=== PATIENT | female | born 1940 | race Caucasian/White ===

== ENCOUNTER → 2017-09-13 09:08 | Outpatient (CLI) | payer MEDICARE, SELFPAY ==
[2017-09-13 14:51] LABS: Hemoglobin A1C 9.9 % (4.5-6.2)
== END ==
PROVIDERS: PCP Family Medicine; Visit Provider Family Medicine
DX: E11.9 Type 2 diabetes mellitus without complications (principal)
CPT/HCPCS: 36415; 83036

== ENCOUNTER → 2017-10-17 09:07 | Outpatient (BNVA) | payer MEDICARE, SELFPAY | PROVIDERS: PCP Family Medicine; Visit Provider Student in an Organized Health Care Education/Training Program | DX: M65.342 Trigger finger, left ring finger (principal) | CPT/HCPCS: 99213 ==

== ENCOUNTER → 2017-10-23 08:00 | Outpatient (BNVA) | payer MEDICARE, SELFPAY | PROVIDERS: PCP Family Medicine; Referring Provider Family Medicine; Visit Provider Student in an Organized Health Care Education/Training Program | DX: R69 Illness, unspecified (principal) ==

== ENCOUNTER 2017-10-23 09:33 | Day surgery (SDC) | payer MEDICARE, SELFPAY ==
[2017-10-23 09:44] VITALS: BP 139/83; PULSE 80; RESP 18; TEMP 36.4; O2SAT 92
--- NOTE | 2017-10-23 10:55 | W.PM.DSUDISC ---
Discharge Plan Disposition Patient Disposition: HOME Condition: Good Discharge Details Reason For Visit: TRIGGER FINGER (L) Attending Provider: Peterson Tarango Primary Care Provider: Mario Poole Home Meds and New Rx's Prescriptions: No Action acetaminophen 325 MG tablet 325 mg PO PRN RF: 0 aspirin [Aspirin Low-Strength] 81 MG tablet,chewable 81 mg PO DAILY RF: 0 [id number]-[id number]-[id number]-brrfyph-ast [MegaRed [place]-3 Krill Oil] 1 EACH capsule 1 ea PO DAILY RF: 0 metformin 500 MG tablet 500 mg PO BID Qty: 180 RF: 3 clopidogrel [Plavix] 75 MG tablet 75 mg PO DAILY Qty: 90 RF: 4 levothyroxine 88 MCG tablet 88 mcg PO DAILY Qty: 90 RF: 3 Discharge Instructions Stand Alone Forms: Emelina Hewitt Finger Release Activity:: Elevate Remove Dressings/Wound Care:: 48 hours Shower/Bathe:: 48 hours Discharge Orders Discharge Orders: Discharge Order (Routine); Ordered 10/23/17 Ordered By: Peterson Tarango DS: Diagnosis Discharge Diagnosis (1) Trigger finger, left ring finger: Status: Acute
--- NOTE | 2017-10-23 11:50 | W.PM.OP ---
Date of service: 10/23/17 Time of Service: 10:00 Operative Note DATE OF PROCEDURE: 10/23/17 PRE-OP DIAGNOSIS: Trigger Finger -left ring finger POST-OP DIAGNOSIS: same PROCEDURE: Trigger Finger Release -left ring finger SURGEON: Peterson Tarango ANESTHESIA: local PATHOLOGY: none sent COMPLICATIONS: None Patient was transported to: same day Patient's condition: stable Indications: I have seen Margi in clinic for symptoms of a trigger finger. The catching, clicking, locking, and pain limited function. The diagnosis of trigger finger was evident. The symptoms had not responded to conservative measures. I discussed trigger finger release with the patient. I reviewed the risks of the procedure to include, but not limited to, bleeding, infection, pain, stiffness, incomplete release, damage to nerves or vessels, continued catching, recurrence. Despite these risks, the patient elected to proceed. Findings: There was a tightened A1 kenroy which was released. The flexor tendons were inspected and the patient was able to move the finger without any catching, clicking, or locking. Procedure Description: Margi was greeted in the preoperative holding area where the correct side was identified and marked. The consent was reviewed with the patient and signed. All questions were answered. Margi was taken back to the operating room. The patient was placed into the supine position on the operating room table with the left arm on an arm board. All bony prominences were well padded. No prophylactic antibiotics were administered since this was a clean, elective hand surgical case. The left arm was then prepped with Chloraprep and draped in a standard fashion with stockinette and extremity drape. A timeout to confirm correct identity, side and site, procedure, allergies, anesthesia, and medical concerns was performed. The surgical site was marked as a longitudinal incision directly over the A1 kenroy of the involved digit. This was confirmed with palpation during finger flexion. This area, overlying the metacarpal head, was then anesthetized with 1% Lidocaine. The patient tolerated this well and once the anesthetic had setup, the procedure began. A longitudinal incision was made through skin only, approximately 1cm. The deep tissues were dissected bluntly. Once the A1 kenroy and flexor tendons were identified the soft tissue including neurovascular structures were retracted medially and laterally. There were no crossing structures over the A1 kenroy. The proximal edge of the kenroy was identified and the kenroy was incised with tenotomy scissors. There was a release of the tendons once this was fully released. The tendons were then removed from the wound and inspected. Excess synovium was resected. The tendons were then returned and the patient was asked to move the finger into deep flexion and back to extension. There was no recreation of the pre-operative symptoms. The hand was then once more inspected for any A0 kenroy or area of possible constriction. The wound was then irrigated and the skin was closed with a 4-0 Nylon. This was dressed with gauze and a Conform dressing. The patient tolerated the procedure well and was returned to the Same Day Surgery area in a stable condition suffering no known complication.
--- NOTE | 2017-10-24 07:51 | ROE_ITS ---
Date of service: 10/23/17 Time of Service: 10:00 Operative Note DATE OF PROCEDURE: 10/23/17 PRE-OP DIAGNOSIS: Trigger Finger -left ring finger POST-OP DIAGNOSIS: same PROCEDURE: Trigger Finger Release -left ring finger SURGEON: Peterson Tarango ANESTHESIA: local PATHOLOGY: none sent COMPLICATIONS: None Patient was transported to: same day Patient's condition: stable Indications: I have seen Margi in clinic for symptoms of a trigger finger. The catching, clicking, locking, and pain limited function. The diagnosis of trigger finger was evident. The symptoms had not responded to conservative measures. I discussed trigger finger release with the patient. I reviewed the risks of the procedure to include, but not limited to, bleeding, infection, pain , stiffness, incomplete release, damage to nerves or vessels, continued catching , recurrence. Despite these risks, the patient elected to proceed. Findings: There was a tightened A1 kenroy which was released. The flexor tendons were inspected and the patient was able to move the finger without any catching, clicking, or locking. Procedure Description: Margi was greeted in the preoperative holding area where the correct side was identified and marked. The consent was reviewed with the patient and signed. All questions were answered. Margi was taken back to the operating room. The patient was placed into the supine position on the operating room table with the left arm on an arm board. All bony prominences were well padded. No prophylactic antibiotics were administered since this was a clean, elective hand surgical case. The left arm was then prepped with Chloraprep and draped in a standard fashion with stockinette and extremity drape. A timeout to confirm correct identity, side and site, procedure, allergies, anesthesia, and medical concerns was performed. The surgical site was marked as a longitudinal incision directly over the A1 kenroy of the involved digit. This was confirmed with palpation during finger flexion. This area, overlying the metacarpal head, was then anesthetized with 1 % Lidocaine. The patient tolerated this well and once the anesthetic had setup , the procedure began. A longitudinal incision was made through skin only, approximately 1cm. The deep tissues were dissected bluntly. Once the A1 kenroy and flexor tendons were identified the soft tissue including neurovascular structures were retracted medially and laterally. There were no crossing structures over the A1 kenroy. The proximal edge of the kenroy was identified and the kenroy was incised with tenotomy scissors. There was a release of the tendons once this was fully released. The tendons were then removed from the wound and inspected. Excess synovium was resected. The tendons were then returned and the patient was asked to move the finger into deep flexion and back to extension. There was no recreation of the pre- operative symptoms. The hand was then once more inspected for any A0 kenroy or area of possible constriction. The wound was then irrigated and the skin was closed with a 4-0 Nylon. This was dressed with gauze and a Conform dressing. The patient tolerated the procedure well and was returned to the Same Day Surgery area in a stable condition suffering no known complication.
== END 2017-10-23 11:40 | disposition home or self-care (01) ==
PROVIDERS: PCP Family Medicine; Visit Provider Student in an Organized Health Care Education/Training Program
PROC: (CPT 26055; principal; 2017-10-23 11:45)
DX: M65.342 Trigger finger, left ring finger (principal)
CPT/HCPCS: 26055

== ENCOUNTER → 2017-11-02 09:38 | Outpatient (BNVA) | payer MEDICARE, SELFPAY | PROVIDERS: PCP Family Medicine; Referring Provider Family Medicine; Visit Provider Student in an Organized Health Care Education/Training Program | DX: M65.342 Trigger finger, left ring finger (principal); I10 Essential (primary) hypertension; E11.9 Type 2 diabetes mellitus without complications; Z79.84 Long term (current) use of oral hypoglycemic drugs ==

== ENCOUNTER 2018-03-19 15:36 | Outpatient (CLI) | payer MEDICARE, SELFPAY ==
--- NOTE | 2018-03-19 11:45 | DI.RAD_ITS ---
SYMPTOM/DIAGNOSIS: LT ANKLE PAIN, M25.572 LEFT ANKLE: Three views. No acute or healing fracture or dislocation is seen. The articular surfaces are well maintained. There is soft tissue swelling about the ankle. Vascular calcifications are present. IMPRESSION: Soft tissue swelling about the left ankle. No acute fracture or dislocation.
== END 2018-03-19 15:56 ==
PROVIDERS: PCP Family Medicine; Visit Provider Family Medicine
DX: M25.572 Pain in left ankle and joints of left foot (principal); M79.89 Other specified soft tissue disorders
CPT/HCPCS: 73610